=== PATIENT | female | born 1990 | race Caucasian/White ===

== ENCOUNTER 2017-03-30 08:46 | Emergency (ER) | payer OTHER ==
[2017-03-30 09:03] VITALS: BP 111/86
--- NOTE | 2017-03-30 09:17 | UC ---
Complaint Female HPI - HPI Summary HPI Summary: complaint of blood in urine that started approx 1 year- evaluated by PET SITTER then referred to urology intermittent bleeding in urine last night more blood than usual denies any pain with urination lower back pain for approx 4 days thst is resolving no increase in frequency or urgancy denies fever LMP 01/11/17 appt with urology on 04/03/17 not taking ay medications for symptoms - History Of Current Complaint Chief Complaint: UCGU Stated Complaint: URINARY COMPLAINT Time Seen by Provider: 03/30/17 09:09 Hx Obtained From: Patient Hx Last Menstrual Period: January 2017 - Allergies/Home Medications Allergies/Adverse Reactions: Allergies Allergy/AdvReac Type Severity Reaction Status Date / Time seasonal Allergy Eyes Uncoded 07/27/16 10:18 Itchy/Swollen/Red/Watery Home Medications: Home Medications Esomeprazole Magnesium [Nexium] 1 tab PO DAILY 03/30/17 [History Confirmed 03/30] Medroxyprogesterone Acetate (A [Depo-Provera] 400 mg IM SEE INSTRUCTIONS [History Confirmed 03/30/17] PMH/Surg Hx/FS Hx/Imm Hx Previously Healthy: No - hematuria - Surgical History Surgical History: Yes Surgery Procedure, Year, and Place: breast reduction 05/2012 - Family History Known Family History: Positive: Hypertension - Social History Alcohol Use: Weekly Alcohol Amount: 3-4 Substance Use Type: None Smoking Status (MU): Light Every Day Tobacco Smoker When Did the Patient Quit Smoking/Using Tobacco: 5 days Cessation Counseling: Patient Advised to Stop Review of Systems Constitutional: Negative Skin: Negative Eyes: Negative ENT: Negative Respiratory: Negative Cardiovascular: Negative Gastrointestinal: Negative Genitourinary: Hematuria Motor: Negative Neurovascular: Negative Musculoskeletal: Other: - lower bcak pain Neurological: Negative Psychological: Negative All Other Systems Reviewed And Are Negative: Yes Physical Exam Triage Information Reviewed: Yes Appearance: No Pain Distress, Well-Nourished Vital Signs: Initial Vital Signs Temp 98.6 F 03/30/17 08:55 Pulse 108 03/30/17 08:55 Resp 22 03/30/17 08:55 BP 111/86 03/30/17 08:55 Vital Signs Reviewed: Yes Eyes: Positive: Conjunctiva Clear ENT: Positive: Pharynx normal, TMs normal Neck: Positive: No Lymphadenopathy Respiratory: Positive: Lungs clear, Normal breath sounds, No respiratory distress Cardiovascular: Positive: RRR, No Murmur, Pulses Normal Abdomen Description: Positive: Nontender, No Organomegaly, Soft. Negative: CVA Tenderness (R), CVA Tenderness (L), Distended, Guarding Bowel Sounds: Positive: Present Musculoskeletal: Positive: No Edema Neurological: Positive: Alert Psychological Exam: Normal Skin Exam: Normal Complaint Female Dx - Course Course Of Treatment: exam completed. heamturia for approx 1 year, today she is having no symptoms of dysuria or fever- stable and can be evaluated in 4 days by urology. discussed s/s of when to seek emergent care. - Differential Dx/Diagnosis Provider Diagnoses: hematuria Discharge - Discharge Plan Condition: Stable Disposition: HOME Patient Education Materials: Hematuria (ED) Forms: *Work Release Referrals: Singh Renee MD [Primary Care Provider] - Additional Instructions: Please keep your ppt with urology for further evaluation and treatment. Increase fluids and rest Take acetaminophen or ibuprofen for fever or pain Please review your discharge instructions. If your symptoms do not improve please call your primary care provider or return to urgent care. .
== END 2017-03-30 09:49 | disposition home or self-care (01) ==
LOC: UCCORT 08:46
DX: R31.9 Hematuria, unspecified (principal); F17.200 Nicotine dependence, unspecified, uncomplicated
CPT/HCPCS: 81003; 87086; 87798; 99211; G0463

== ENCOUNTER 2017-06-04 17:41 | Emergency (ER) | payer OTHER ==
[2017-06-04 18:13] VITALS: BP 127/95
--- NOTE | 2017-06-04 18:30 | UC ---
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 - History of Current Complaint Chief Complaint: UCGI Stated Complaint: VOMITING, DIARRHEA Time Seen by Provider: 06/04/17 18:21 Hx Obtained From: Patient Hx Last Menstrual Period: DOES NOT HAVE REG PERIODS, IS ON DEPO Onset/Duration: Gradual Onset, Lasting Days Timing: Constant Severity Initially: Moderate Severity Currently: Moderate Pain Intensity: 4 - worse at times Pain Scale Used: 0-10 Numeric Location: Diffuse Radiates: No Character: Cramping Aggravating Factor(s): Nothing Associated Signs and Symptoms: Positive: Nausea, Vomiting, Diarrhea Allergies/Adverse Reactions: Allergies Allergy/AdvReac Type Severity Reaction Status Date / Time seasonal Allergy Eyes Uncoded 06/04/17 18:02 Itchy/Swollen/Red/Watery Home Medications: Home Medications Lactobacillus [Probiotic] 1 cap PO DAILY 06/04/17 [History Confirmed 06/04/17] Multiple Vitamins W/ Minerals [Multivitamin Womens] 1 tab PO DAILY 06/04/17 [ History Confirmed 06/04/17] PMH/Surg Hx/FS Hx/Imm Hx Previously Healthy: Yes - Surgical History Surgical History: Yes Surgery Procedure, Year, and Place: breast reduction 05/2012 - Family History Known Family History: Positive: Hypertension - Social History Alcohol Use: Weekly Alcohol Amount: 3-4 Substance Use Type: None Smoking Status (MU): Light Every Day Tobacco Smoker Type: Cigarettes Amount Used/How Often: 5 CIGS PER DAY When Did the Patient Quit Smoking/Using Tobacco: 5 days Review of Systems Constitutional: Negative Skin: Negative Eyes: Negative ENT: Negative Respiratory: Negative Cardiovascular: Negative Gastrointestinal: Abdominal Pain, Vomiting, Diarrhea, Nausea Genitourinary: Negative Motor: Negative Neurovascular: Negative Musculoskeletal: Negative Neurological: Negative Psychological: Negative All Other Systems Reviewed And Are Negative: Yes Physical Exam Triage Information Reviewed: Yes Appearance: Well-Appearing, No Pain Distress, Well-Nourished Vital Signs: Initial Vital Signs Temp 97.3 F 06/04/17 18:03 Pulse 97 06/04/17 18:03 Resp 20 06/04/17 18:03 BP 127/95 06/04/17 18:03 Pulse Ox 98 06/04/17 18:03 Vital Signs Reviewed: Yes Eye Exam: Normal Eyes: Positive: Conjunctiva Clear ENT: Positive: Hearing grossly normal, Pharynx normal, TMs normal. Negative: Nasal congestion, Nasal drainage, Tonsillar exudate, Trismus, Muffled/hoarse voice Dental: Negative: Abscess @ Neck: Positive: Supple, Nontender, No Lymphadenopathy Respiratory: Positive: Lungs clear, Normal breath sounds, No respiratory distress, No accessory muscle use Cardiovascular: Positive: RRR, No Murmur. Negative: Tachycardia, Bradycardia Abdomen Description: Positive: Nontender, No Organomegaly, Soft Bowel Sounds: Positive: Present Musculoskeletal: Positive: ROM Intact, No Edema Neurological Exam: Normal Neurological: Positive: Alert Psychological Exam: Normal Skin Exam: Normal Abd Pain Female Course/Dx - Differential Dx/Diagnosis Provider Diagnoses: acute diarrhea. gastroenteritis. possible exposure to c. diff Discharge - Discharge Plan Condition: Stable Disposition: HOME Prescriptions: Ondansetron TAB* [Zofran Tab*] 4 mg PO Q6H PRN #10 tab PRN Reason: Nausea Patient Education Materials: Acute Diarrhea (ED) Forms: *Work Release Referrals: Singh Renee MD [Primary Care Provider] - 2 Days Additional Instructions: bring in stool for studies recheck for new or worsening symptoms recheck in 2 days
[2017-06-04] MEDS ORDERED: Ondansetron ODT TAB* 4 MG PO ONE (18:38)
== END 2017-06-04 18:51 | disposition home or self-care (01) ==
LOC: UCCORT 17:41
DX: K52.9 Noninfective gastroenteritis and colitis, unspecified (principal); R10.84 Generalized abdominal pain; F17.210 Nicotine dependence, cigarettes, uncomplicated
CPT/HCPCS: 81003; 87086; 99212; A9270-GY; G0463

== ENCOUNTER 2017-07-25 12:44 | Emergency (ER) | payer OTHER ==
[2017-07-25 13:01] VITALS: BP 119/78
--- NOTE | 2017-07-25 13:05 | UC ---
Throat Pain/Nasal Dutch HPI - HPI Summary HPI Summary: 27 YEAR OLD FEMALE PRESENTS WITH TONSILAR SWELLING AND SORE THROAT. - History of Current Complaint Chief Complaint: UCRespiratory Stated Complaint: SORE THROAT LEFT EAR COMPLAINT Time Seen by Provider: 07/25/17 12:54 Hx Obtained From: Patient Hx Last Menstrual Period: 03/2017 Onset/Duration: Sudden Onset Severity: Moderate Pain Scale Used: 0-10 Numeric - 5 - Allergies/Home Medications Allergies/Adverse Reactions: Allergies Allergy/AdvReac Type Severity Reaction Status Date / Time seasonal Allergy Eyes Uncoded 07/25/17 13:01 Itchy/Swollen/Red/Watery Home Medications: Home Medications Dextromethorphan-Phenylephrine [Vicks Dayquil Cold & Flu 10-5-325 mg] 2 cap PO DAILY 07/25/17 [History Confirmed 07/25/17] PMH/Surg Hx/FS Hx/Imm Hx Previously Healthy: Yes - Surgical History Surgical History: Yes Surgery Procedure, Year, and Place: breast reduction 05/2012 - Family History Known Family History: Positive: Hypertension - Social History Alcohol Use: Occasionally Alcohol Amount: 3-4 Substance Use Type: None Smoking Status (MU): Light Every Day Tobacco Smoker Type: Cigarettes Amount Used/How Often: 5 CIGS PER DAY When Did the Patient Quit Smoking/Using Tobacco: 5 days Review of Systems Constitutional: Negative Skin: Negative Eyes: Negative ENT: Sore Throat, Ear Ache Respiratory: Negative Cardiovascular: Negative Gastrointestinal: Negative Genitourinary: Negative Motor: Negative Neurovascular: Negative Musculoskeletal: Negative Neurological: Negative Psychological: Negative All Other Systems Reviewed And Are Negative: Yes Physical Exam Triage Information Reviewed: Yes Vital Signs: Initial Vital Signs Temp 37.4 C 07/25/17 12:56 Pulse 105 07/25/17 12:56 Resp 24 07/25/17 12:56 BP 119/78 07/25/17 12:56 Vital Signs Reviewed: Yes Eye Exam: Normal ENT Exam: Normal ENT: Positive: Pharyngeal erythema, Nasal drainage, Tonsillar swelling Dental Exam: Normal Neck exam: Normal Neck: Positive: 1 Respiratory Exam: Normal Cardiovascular Exam: Normal Abdominal Exam: Normal Musculoskeletal Exam: Normal Neurological Exam: Normal Psychological Exam: Normal Skin Exam: Normal Throat Pain/Nasal Course/Dx - Differential Dx/Diagnosis Provider Diagnoses: strep throat. bilateral ear pain Discharge - Discharge Plan Condition: Stable Disposition: HOME Prescriptions: Amoxicillin/Clavulanate TAB* [Augmentin TAB 875*] 875 mg PO BID #20 tab Magic M W2 Moise/Maal/Nyst/Lido* 5 ml SWISH SPIT QID PRN #120 ml PRN Reason: Pain Methylprednisolone [Medrol Dosepak 4 MG*] 4 mg PO .SEE GENET INSTRUCTION #21 tab Patient Education Materials: Tonsillitis (ED) Referrals: Singh Renee MD [Primary Care Provider] -
--- NOTE | 2017-07-28 07:51 | ED ---
Progress - Progress Note Progress Note: no change. (+) strep. Course/Dx - Diagnoses Provider Diagnoses: Sore throat
== END 2017-07-25 13:40 | disposition home or self-care (01) ==
LOC: UCCORT 12:44
DX: J02.0 Streptococcal pharyngitis (principal); H92.03 Otalgia, bilateral; F17.210 Nicotine dependence, cigarettes, uncomplicated
CPT/HCPCS: 87070; 87651; 99212; G0463

== ENCOUNTER 2018-11-04 16:13 | Emergency (ER) | payer OTHER ==
[2018-11-04 16:49] VITALS: BP 107/77
--- NOTE | 2018-11-04 17:14 | UC ---
Throat Pain/Nasal Dutch HPI - HPI Summary HPI Summary: Pt c/o ST, malaise, fever, chills X 3 days. - History of Current Complaint Chief Complaint: UCGeneralIllness Stated Complaint: SORE THROAT,COUGH Hx Obtained From: Patient Hx Last Menstrual Period: Depo Provera ?: No Onset/Duration: Sudden Onset, Lasting Days, Still Present Severity: Moderate Pain Intensity: 3 Cough: None Associated Signs & Symptoms: Positive: Dysphagia, Fever - Epiglottits Risk Factors Epiglottis Risk Factors: Sudden Onset - Allergies/Home Medications Allergies/Adverse Reactions: Allergies Allergy/AdvReac Type Severity Reaction Status Date / Time seasonal Allergy Eyes Uncoded 11/04/18 16:49 Itchy/Swollen/Red/Watery PMH/Surg Hx/FS Hx/Imm Hx Previously Healthy: Yes - Surgical History Surgical History: Yes Surgery Procedure, Year, and Place: breast reduction 05/2012 - Family History Known Family History: Positive: Hypertension - Social History Occupation: Employed Full-time Lives: With Family Alcohol Use: Occasionally Alcohol Amount: 3-4 Substance Use Type: None Smoking Status (MU): Former Smoker Type: Cigarettes Amount Used/How Often: 5 CIGS PER DAY Have You Smoked in the Last Year: Yes When Did the Patient Quit Smoking/Using Tobacco: 5 days Review of Systems All Other Systems Reviewed And Are Negative: Yes Constitutional: Positive: Fever, Chills, Fatigue Skin: Positive: Negative Eyes: Positive: Negative ENT: Positive: Sore Throat Respiratory: Positive: Cough - occasional Cardiovascular: Positive: Negative Gastrointestinal: Positive: Negative Genitourinary: Positive: Negative Motor: Positive: Negative Neurovascular: Positive: Negative Musculoskeletal: Positive: Myalgia Neurological: Positive: Headache Psychological: Positive: Negative Is Patient Immunocompromised?: No Physical Exam Triage Information Reviewed: Yes Appearance: Ill-Appearing Vital Signs: Initial Vital Signs Temp 97.8 F 11/04/18 16:47 Pulse 86 11/04/18 16:47 Resp 16 11/04/18 16:47 BP 107/77 11/04/18 16:47 Pulse Ox 98 11/04/18 16:47 Vital Signs Reviewed: Yes Eye Exam: Normal ENT: Positive: Pharyngeal erythema, Tonsillar swelling Dental Exam: Normal Neck exam: Normal Respiratory Exam: Normal Cardiovascular Exam: Normal Musculoskeletal Exam: Normal Neurological Exam: Normal Psychological Exam: Normal Skin Exam: Normal Throat Pain/Nasal Course/Dx - Differential Dx/Diagnosis Differential Diagnosis/HQI/PQRI: Influenza, Pharyngitis, Tonsillitis, URI Provider Diagnosis: Tonsillitis Discharge - Sign-Out/Discharge Documenting (check all that apply): Patient Departure All imaging exams completed and their final reports reviewed: No Studies - Discharge Plan Condition: Stable Disposition: HOME Prescriptions: Amoxicillin PO (*) [Amoxicillin 500 MG CAP*] 500 mg PO Q12H #20 cap Patient Education Materials: Tonsillitis (ED) Referrals: Singh Renee MD [Primary Care Provider] - If Needed - Billing Disposition and Condition Condition: STABLE Disposition: Home
== END 2018-11-04 17:24 | disposition home or self-care (01) ==
LOC: UCCORT 16:13
DX: J03.90 Acute tonsillitis, unspecified (principal); R53.81 Other malaise; Z91.048 Other nonmedicinal substance allergy status; Z87.891 Personal history of nicotine dependence
CPT/HCPCS: 87651; 99212; G0463

== ENCOUNTER 2019-10-16 17:14 | Emergency (ER) | payer OTHER ==
--- OUTSIDE RECORDS SUMMARY | 2019-10-16 17:22 | XMS REPORT | Continuity of Care Document ---
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 [phone] Problems Active Problems Provider Date Internal hemorrhoids without complication Ana Renee NP Onset: 11/2010 Constipation Ana Renee NP Onset: 02/11/2011 Social History Type Date Description Comments Sex Unknown Tobacco Use Start: Unknown End: Patient is a former quit initially in smoker 11/2015 and again in 07/2016, formerly <10cig/day Tobacco Use Start: Unknown Patient is a current restarted 03/2019, smoker, smokes every day smoking about 1/4 ppd, quit again 07/20/19 Smoking Status Reviewed: 09/06/19 Patient is a current restarted 03/2019, smoker, smokes every day smoking about 1/4 ppd, quit again 07/20/19 Allergies, Adverse Reactions, Alerts Active Allergies Reaction Severity Comments Date NKDA 10/27/2014 Environmental 10/27/2014 Medications Active Medications SIG Qnty Indications Ordering Date Provider Omeprazole 1 by mouth every 30caps K21.9 Digiovanna, 20mg Capsules Ana [employer]CH[employer]IC 9 Medroxyprogesterone 150mg intramuscular 3ml Digiovanna, Acetate every 3 months Ana, [employer] MECH[employer]IC 8 150mg/ml Suspension Vitamin D-1000 Maximum 1 by mouth every E55.9 Digiovanna, Strength day Ana, [employer]IC 8 1000Unit Tablets Melatonin ER take 1 po about 30 OTC G47.00 Digiovanna, 3mg Tablets ER min prior to sleep Ana, [employer] ME[employer]IC 5 during shift work Immunizations CPT Code Status Date Vaccine Reaction Lot # [id number] Given 08/06/2019 Influenza Virus Vaccine,Quadrivalent,Split, Preserv Free, 0.5mL,[place] [address] Given 07/31/2018 Afluria Or Fluvirin Flu Vac Intramuscular 04138 Given 01/30/2018 Tdap (Adacel) Ages 7 And Im inj completed, Pt [id number] Above Only tolerated well 22767 Given 07/29/2012 Afluria Or Fluvirin Flu Vac Intramuscular 25500 Given 07/29/2012 Afluria Or Fluvirin Flu Vac Intramuscular 90279 Given 06/24/2008 HPV Vaccine (Gardasil) 3 Dose Schedule 64506 Given 06/24/2008 HPV Vaccine (Gardasil) 3 Dose Schedule 08206 Given 02/22/2008 HPV Vaccine (Gardasil) 3 Dose Schedule 85494 Given 02/22/2008 HPV Vaccine (Gardasil) 3 Dose Schedule 94547 Given 12/23/2007 HPV Vaccine (Gardasil) 3 Dose Schedule 06525 Given 12/23/2007 HPV Vaccine (Gardasil) 3 Dose Schedule [id number] Refused 01/30/2018 Afluria Imunization Vital Signs Date Vital Result Comment 09/06/2019 4:06pm Weight 202.00 lb Heart Rate 70 /min BP Systolic 118 mmHg BP Diastolic 72 mmHg Respiratory Rate 16 /min Height 67 inches 5'7" BMI (Body Mass Index) 31.6 kg/m2 07/23/2019 9:34am Weight 198.00 lb Heart Rate 70 /min BP Systolic 116 mmHg BP Diastolic 82 mmHg Respiratory Rate 16 /min Height 67 inches 5'7" BMI (Body Mass Index) 31.0 kg/m2 Results Description No Information Available Procedures Description No Information Available Medical Devices Description No Information Available Encounters Type Date Location Provider Dx Diagnosis Office Visit 07/23/2019 Nataliia Kim Gastro-esophageal 9:30a Ana, ROB[employer] MECH[employer]IC reflux disease without esophagitis Z72.0 Tobacco use Z68.31 Body mass index (BMI) 31.0-31.9, adult Office Visit 06/21/2019 1:45p Clifford Kim.[facility] Gastro-esophageal reflux Ana, [employer] MECH[employer]IC disease without esophagitis Z72.0 Tobacco use Assessments Date Code Description Provider 09/06/2019 L30.9 Dermatitis, unspecified Maia Gonzalez NP 07/23/2019 K21.9 Gastro-esophageal reflux disease without Digiovanna, Ana, [employer] MECH[employer]IC esophagitis 07/23/2019 Z72.0 Tobacco use Ana Renee NP 07/23/2019 Z68.31 Body mass index (BMI) 31.0-31.9, adult Ana Renee NP 06/21/2019 K21.9 Gastro-esophageal reflux disease without Digiovanna, Ana, ROB[employer] MECH[employer]IC esophagitis 06/21/2019 Z72.0 Tobacco use Ana Renee NP Plan of Treatment Future Appointment(s):02/04/2020 7:35 am - Schedule, Laboratory at [facility]2019 3:30 pm - Maia Gonzalez NP at [facility]09/06/2019 - Maia Gonzalez NPL30.9 Dermatitis, unspecifiedComments:Dermatitis to left chest. Avoid inciting agentRecommend OTC hydrocortisone cream three time dailyCanuse OTC benadryl cream as needed for itchingCan use OTC benadryl tab by mouth as needed. Call if worsens.Follow up:As needed Functional Status Description No Information Available Mental Status Description No Information Available Referrals Description No Information Available
[2019-10-16 17:26] VITALS: BP 131/94
--- NOTE | 2019-10-16 17:37 | UC ---
Back Pain HPI - HPI Summary HPI Summary: 29-year-old female who [place] on her coccyx. 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 She denies any saddle anesthesia and no numbness or tingling in her extremities. - History of Current Complaint Chief Complaint: UCBackPain Stated Complaint: LOW BACK PAIN Time Seen by Provider: 10/16/19 17:21 Hx Obtained From: Patient Hx Last Menstrual Period: NO cycles-pt on depo ?: No Onset/Duration: Sudden Onset, Lasting Days Timing: Constant Severity Initially: Moderate Severity Currently: Mild - Patient ambulatory without difficulty. Pain Intensity: 7 Back Pain: Is Discrete @ - Coccyx Character: Dull, Aching Aggravating Factor(s): Movement, Lifting, Bending Alleviating Factor(s): Rest Associated Signs And Symptoms: Positive: Negative - Allergies/Home Medications Allergies/Adverse Reactions: Allergies Allergy/AdvReac Type Severity Reaction Status Date / Time seasonal Allergy Eyes Uncoded 10/16/19 17:26 Itchy/Swollen/Red/Watery Home Medications: Home Medications Naproxen Sodium [Aleve] 220 mg PO ONCE PRN 10/16/19 [History Confirmed 10/16/19] Omeprazole 20 mg PO DAILY 10/16/19 [History Confirmed 10/16/19] PMH/Surg Hx/FS Hx/Imm Hx Previously Healthy: Yes - Surgical History Surgical History: Yes Surgery Procedure, Year, and Place: breast reduction 05/2012 - Family History Known Family History: Positive: Hypertension - Social History Occupation: Employed Full-time Alcohol Use: Weekly Alcohol Amount: 3-4 Substance Use Type: None Smoking Status (MU): Former Smoker Type: Cigarettes Amount Used/How Often: 5 CIGS PER DAY Have You Smoked in the Last Year: Yes When Did the Patient Quit Smoking/Using Tobacco: 3 months ago Review of Systems All Other Systems Reviewed And Are Negative: Yes Musculoskeletal: Positive: Other: - Pain over the coccyx area. No bruising, erythema, swelling or deformity is noted. Patient has full range of motion. Patient denies any other injury. Denies any head or neck pain. Is Patient Immunocompromised?: No Physical Exam Triage Information Reviewed: Yes Appearance: Well-Appearing, No Pain Distress, Well-Nourished Vital Signs: Initial Vital Signs Temp 97.2 F 10/16/19 17:22 Pulse 78 10/16/19 17:22 Resp 20 10/16/19 17:22 BP 131/94 10/16/19 17:22 Pulse Ox 99 10/16/19 17:22 Vital Signs Reviewed: Yes Neck: Positive: Supple, Nontender Respiratory: Positive: Chest non-tender, Lungs clear, Normal breath sounds, No respiratory distress Cardiovascular: Positive: RRR, No Murmur, Pulses Normal, Brisk Capillary Refill Musculoskeletal: Positive: Strength Intact, ROM Intact, Other: - Mild tenderness on palpation over the coccyx with no erythema, bruising, swelling or deformity. Neurological: Positive: Alert, Muscle Tone Normal Psychological Exam: Normal Skin Exam: Normal Back Pain Course/Dx - Course Course Of Treatment: Coccyx x-ray: Negative as interpreted by myself and Dr. Chavez. - Differential Dx/Diagnosis Provider Diagnosis: Contusion of coccyx Discharge ED - Sign-Out/Discharge Documenting (check all that apply): Patient Departure All imaging exams completed and their final reports reviewed: No - Discharge Plan Condition: Fair Disposition: HOME Patient Education Materials: Coccyx Injury (ED) Forms: *Work Release Referrals: Singh Renee MD [Primary Care Provider] - Pinky Hernandez MD [Medical Doctor] - Additional Instructions: Avoid movements that cause pain. May apply heat to the sore area. May purchase one of the inflatable circular "donuts" for sitting comfort. May take Tylenol every 4 hours and Motrin every 8 hours for pain. Follow-up with the orthopedist if no improvement or if worsening symptoms. You can call after 10: 00 tomorrow to find out the x-ray results. Go to the emergency room if you have any numbness or tingling in her extremities. - Billing Disposition and Condition Condition: FAIR Disposition: Home
== END 2019-10-16 18:07 | disposition home or self-care (01) ==
LOC: UCCORT 17:14
DX: S30.0XXA Contusion of lower back and pelvis, initial encounter (principal); W10.9XXA Fall (on) (from) unspecified stairs and steps, initial encounter; Y92.9 Unspecified place or not applicable; Z91.09 Other allergy status, other than to drugs and biological substances; Z87.891 Personal history of nicotine dependence
CPT/HCPCS: 72220; 99211; G0463